=== PATIENT | male | born 1965 | race Caucasian/White ===

== ENCOUNTER 2017-04-08 06:08 | Day surgery (SDC) | payer BC ==
[~2017-04-08] VITALS: Ht 175.3 cm; Wt 67.3 kg
[2017-04-08 06:56] VITALS: Ht 175.3 cm; Wt 67.3 kg
[2017-04-08] MEDS ORDERED: trazodone PO (07:00)
[2017-04-08] MEDS ORDERED: aspirin PO (07:00)
[2017-04-08] MEDS ORDERED: lexapro PO (07:00)
--- NOTE | 2017-04-08 07:51 | OPPN ---
Date/Time of Note Date/Time of Note DATE: 04/08/17 TIME: 07:50 Operative Report Preoperative Diagnosis Screening Postoperative Diagnosis Internal hemorrhoid Operation/Procedure Performed Colonoscopy Provider: TREVON GUERRERO MD Anesthesia Type: moderate sedation Transfusion Required: no Specimen: none Grafts/Implants: none Complications: no TREVON GUERRERO MD Apr 08, 2017 07:51
[2017-04-08] MEDS ORDERED: MIDAZOLAM 1 MG/ML 2 ML INJ ONE (07:54)
[2017-04-08] MEDS ORDERED: FENTAnyl 50 MCG/ML VIAL ONE (07:54)
[2017-04-08 08:10] VITALS: BP 112/75; RESP 14
--- NOTE | 2017-04-08 09:26 | GILP ---
DATE OF PROCEDURE: 04/08/2017 PROCEDURE PERFORMED: Colonoscopy. SURGEON: Valorie Gonzales MD PREOPERATIVE DIAGNOSIS: Screening colonoscopy. POSTOPERATIVE DIAGNOSES: 1. Colonoscopy all the way to the cecum. 2. Poor prep, making the exam somewhat suboptimal. 3. Internal hemorrhoids. 4. No gross neoplasm was identified. INDICATION: Mr. Tiago Victoria is a 52-year-old male patient who was scheduled for screening colonoscopy. The procedure and possible complications were well explained to the patient. He understood and consented to the procedure. DESCRIPTION OF PROCEDURE: Under the influence of fentanyl and Versed, the colonoscope was carefully introduced in the rectum. Under direct vision, it was advanced all the way to the cecum. FINDINGS: The patient had poor prep, making the exam somewhat suboptimal. The patient was noted to have internal hemorrhoids. No gross neoplasm was identified. He tolerated the procedure very well, and there was no complication from the procedure. At the end of procedure, he was awake with stable vital signs and he was discharged home in the care of his family. IMPRESSION: 1. Colonoscopy all the way to the cecum. 2. Poor prep, making the exam somewhat suboptimal. 3. Internal hemorrhoids. 4. No gross neoplasm was identified. PLAN: Because of the poor prep and suboptimal nature of the examination, I would recommend next screening colonoscopy in 2-3 years. Dictated By: MD YARELY Cardenas/randy/fantasma /Document#: [id number]
== END 2017-04-08 13:41 | disposition home or self-care (01) ==
LOC: GIL 06:08
PROVIDERS: ATTEND Internal Medicine Gastroenterology
DX: Z12.11 Encounter for screening for malignant neoplasm of colon (principal); K64.8 Other hemorrhoids
CPT/HCPCS: 45378; J2250; J3010